=== PATIENT | male | born 1970 | race Caucasian/White ===

== ENCOUNTER 2022-01-31 19:43 | Observation (INO) ==
[2022-01-31 20:36] LABS: Basophils % 0.3 %; Eosinophils # 0.1 K/mcL (0.0-0.6); Eosinophils % 1.4 %; Hematocrit 34.8 % (37.5-50.1); Immature Granulocytes % 0.2 % (0-4); Lymphocytes # 1.6 K/mcL (0.6-4.6); Lymphocytes % 17.8 %; Mean Corpuscular HGB Conc 32.8 g/dL (31.6-35.5); Mean Corpuscular Hemoglobin 29.6 pg (28.0-33.3); Mean Corpuscular Volume 90.4 fL (83.0-100.0); Mean Platelet Volume 10.6 fL (9.4-12.4); Monocytes # 0.9 K/mcL (0.0-1.3); Monocytes % 9.8 %; Neutrophils # 6.4 K/mcL (1.6-8.9); Platelet Count 243 K/mcL (140-400); Red Blood Count 3.85 M/mcL (4.19-5.50); Red Cell Distribution Width 15.1 % (11.5-14.5); Segmented Neutrophils % 70.5 %; White Blood Count 9.1 K/mcL (4.3-11.1)
[2022-01-31 20:38] LABS: Hemoglobin 11.4 g/dL (12.9-16.9)
[2022-01-31 20:51] LABS: BUN/Creatinine Ratio 22 (6-26); Blood Urea Nitrogen 24 mg/dL (6-20); Calcium 9.3 mg/dL (8.6-10.3); Carbon Dioxide 26 mEq/L (23-29); Chloride 101 mEq/L (98-107); Glucose 113 mg/dL (70-105); Osmolality,Calculated 285 (280-300); Sodium 135 mEq/L (136-145); eGFR For African Americans > 60 (> 60); eGFR For Non-African Americans > 60 (> 60)
[2022-01-31 21:15] LABS: Bilirubin,Urine Negative (Negative); Blood,Urine Large (Negative); Clarity,Urine Ex.Turbid (Clear); Color,Urine Dark-Red (Yellow); Glucose,Urine (UA) >=1000 mg/dL (Normal); Ketones,Urine Negative (Negative); Leukocyte Esterase,Urine Small (Negative); Nitrite,Urine Negative (Negative); Protein,Urine 100 mg/dL (Neg-Trace); Specific Gravity,Urine 1.018 (1.010-1.025); Urobilinogen,Urine Normal (Normal)
[2022-01-31] MEDS ORDERED: 0.9 % Sodium Chloride 1,000 ML IVC ONE (21:32)
[2022-01-31] MEDS ORDERED: *HR* FentaNYL (PF) 100 MCG/2 ML VIAL IVP ONE (22:36)
[2022-02-01] MEDS ORDERED: Ondansetron 4 MG/2 ML VIAL IVP PRN (01:26)
[2022-02-01] MEDS ORDERED: Naloxone 0.4 MG/ML INJ IVP PRN (01:26)
[2022-02-01] MEDS ORDERED: Acetaminophen 325 MG TABLET PO PRN (01:26)
[2022-02-01] MEDS ORDERED: *HR* Dextrose 50 % in Water (Syg) 50 ML SYRINGE IVP PRN (03:01)
[2022-02-01] MEDS ORDERED: Dextrose 4 GM Chewable Tablets PO PRN ×2 (03:01)
[2022-02-01] MEDS ORDERED: D5% in Water 1,000 ML IVC PRN (03:01)
[2022-02-01 03:13] LABS: Hematocrit 34.8 % (37.5-50.1); Hemoglobin 11.2 g/dL (12.9-16.9); Mean Corpuscular HGB Conc 32.2 g/dL (31.6-35.5); Mean Corpuscular Hemoglobin 29.2 pg (28.0-33.3); Mean Corpuscular Volume 90.9 fL (83.0-100.0); Mean Platelet Volume 10.7 fL (9.4-12.4); Platelet Count 220 K/mcL (140-400); Red Blood Count 3.83 M/mcL (4.19-5.50); White Blood Count 7.9 K/mcL (4.3-11.1)
[2022-02-01 03:28] LABS: BUN/Creatinine Ratio 23 (6-26); Blood Urea Nitrogen 21 mg/dL (6-20); Carbon Dioxide 27 mEq/L (23-29); Chloride 102 mEq/L (98-107); Glucose 89 mg/dL (70-105); Osmolality,Calculated 284 (280-300); Potassium 3.7 mEq/L (3.5-5.1); Sodium 136 mEq/L (136-145); eGFR For African Americans > 60 (> 60); eGFR For Non-African Americans > 60 (> 60)
[2022-02-01] MEDS: cephALEXin 500 MG CAPSULE PO SCH ×3 (04:06→21:06)
[2022-02-01] MEDS: lamoTRIgine 100 MG TABLET PO SCH ×2 (04:07→21:05)
[2022-02-01] MEDS: Pregabalin 50 MG CAPSULE PO SCH ×4 (04:07→21:06)
[2022-02-01] MEDS: (Ezetimibe [Zetia] 10 MG Tablet) PO SCH (08:34)
[2022-02-01] MEDS: atenoloL 25 MG TABLET PO SCH ×2 (08:34→12:02)
[2022-02-01] MEDS: lisinopriL 20 MG TABLET PO SCH ×2 (08:34→12:02)
[2022-02-01] MEDS: Aspirin Enteric Coated 81 MG Tablet PO SCH (08:44)
[2022-02-01] MEDS: Insulin LISPRO 300 UNITS/3 ML VIAL SUBQ SCH ×3 (08:46→11:42)
[2022-02-01 14:43] LABS: Hematocrit 32.2 % (37.5-50.1); Hemoglobin 10.9 g/dL (12.9-16.9); Mean Corpuscular HGB Conc 33.9 g/dL (31.6-35.5); Mean Corpuscular Hemoglobin 30.8 pg (28.0-33.3); Mean Platelet Volume 10.2 fL (9.4-12.4); Platelet Count 204 K/mcL (140-400); Red Blood Count 3.54 M/mcL (4.19-5.50); White Blood Count 7.4 K/mcL (4.3-11.1)
[2022-02-01 15:08] LABS: BUN/Creatinine Ratio 17 (6-26); Blood Urea Nitrogen 17 mg/dL (6-20); Carbon Dioxide 27 mEq/L (23-29); Chloride 99 mEq/L (98-107); Glucose 185 mg/dL (70-105); Osmolality,Calculated 284 (280-300); Potassium 4.1 mEq/L (3.5-5.1); Sodium 134 mEq/L (136-145); eGFR For African Americans > 60 (> 60); eGFR For Non-African Americans > 60 (> 60)
[2022-02-01] MEDS ORDERED: DULAGLUTIDE SQ SCH (16:15)
[2022-02-02 08:12] VITALS: O2SAT 95
[2022-02-02] MEDS: Insulin LISPRO 300 UNITS/3 ML VIAL SUBQ SCH ×2 (08:12→12:12)
[2022-02-02] MEDS: lisinopriL 20 MG TABLET PO SCH (08:15)
[2022-02-02] MEDS: atenoloL 25 MG TABLET PO SCH (08:15)
[2022-02-02] MEDS: Aspirin Enteric Coated 81 MG Tablet PO SCH (08:15)
[2022-02-02] MEDS: Pregabalin 50 MG CAPSULE PO SCH ×2 (08:15→14:49)
[2022-02-02] MEDS: cephALEXin 500 MG CAPSULE PO SCH (08:15)
[2022-02-02] MEDS: (Ezetimibe [Zetia] 10 MG Tablet) PO SCH (08:25)
[2022-02-02 10:29] VITALS: BP 110/65; PULSE 77; TEMP 97.8
== END 2022-02-02 16:02 | disposition home or self-care (01) ==
LOC: EMEROOARM 19:43 → 3BNU 19:43
PROVIDERS: ADMIT Internal Medicine; ATTEND Internal Medicine